=== PATIENT | male | born 2000 | race Caucasian/White ===

== ENCOUNTER 2020-04-02 07:00 | Outpatient (NON) | payer OTHER, SELFPAY ==
[2020-04-02 11:07] LABS: Influenza Control Positive
[2020-04-03 00:26] LABS: SARS-CoV-2 RNA PCR Negative
== END 2020-04-02 07:01 ==
LOC: ANHCOVIDDT 07:12
PROVIDERS: Visit Provider Family Medicine
DX: J02.9 Acute pharyngitis, unspecified (principal); Z20.828 Contact with and (suspected) exposure to other viral communicable diseases
CPT/HCPCS: 87635; 87804; C9803; U0003

== ENCOUNTER → 2021-01-26 02:54 | Outpatient (CLI) | payer OTHER, SELFPAY ==
[2021-01-26 19:14] LABS: SARS-CoV-2 RNA PCR Negative
== END ==
PROVIDERS: PCP Family Medicine; Visit Provider Family Medicine
DX: Z20.822 Contact with and (suspected) exposure to COVID-19 (principal); J02.9 Acute pharyngitis, unspecified
CPT/HCPCS: C9803; U0003; U0005

== ENCOUNTER → 2021-02-16 01:50 | Outpatient (CLI) | payer OTHER, SELFPAY ==
[2021-02-16 18:23] LABS: SARS-CoV-2 RNA PCR Negative
== END ==
PROVIDERS: PCP Family Medicine; Visit Provider Family Medicine
DX: Z20.822 Contact with and (suspected) exposure to COVID-19 (principal); J02.9 Acute pharyngitis, unspecified
CPT/HCPCS: C9803; U0003; U0005

== ENCOUNTER 2022-06-12 19:36 | Emergency (ER) | payer OTHER, SELFPAY ==
[2022-06-12 19:46] VITALS: BP 146/80; PULSE 86; RESP 16; TEMP 36.8; O2SAT 100
--- NOTE | 2022-06-12 19:48 | ED.URI ---
HPI - URI/Sore Throat General Chief Complaint: Upper Respiratory Infection Stated Complaint: sore throat, bodyaches, headaches Time Seen by Provider: 06/12/22 19:42 Source: patient Mode of arrival: ambulatory Limitations: no limitations History of Present Illness HPI Narrative: Patient presents today complaining of sore throat, body aches, headache, fever up to 101. Symptoms began this afternoon. Currently rates his pain 4/10 and has tried no [id number] treatment prior to arrival. Denies any sick contacts. Related Data Allergies Allergy/AdvReac Type Severity Reaction Status Date / Time No Known Allergies Allergy Verified 06/12/22 19:43 Review of Systems Review of Systems: CONSTITUTIONAL: Denies chills, or sweats.+ body aches, fever EYES: Denies visual changes, redness, or discharge. ENT: Denies rhinorrhea, congestion, or otalgia.+ sore throat CARDIOVASCULAR: Denies chest pain, palpitations, or edema. RESPIRATORY: Denies cough or dyspnea. GASTROINTESTINAL: Denies abdominal pain, nausea, vomiting, or diarrhea. GENITOURINARY: Denies dysuria or hematuria. SKIN: Denies rash, itching, or wounds. MUSCULOSKELETAL: Denies back pain, joint pain, or myalgia. NEUROLOGIC: Denies numbness, tingling, or weakness.+ headache PSYCH: Denies depression or anxiety. [facility] Past Medical History Medical History Anxiety BMI 20.0-20.9, adult Confusion and disorientation COVID-19 (~04/2021) 2nd episode April, COVID-19 virus detected (11/01/19) Elevated TSH History of migraine headaches Hypothyroidism, unspecified TSH 6.1, free T4 1.31, T3 total 113, TPO antibody less than 9 on 10/21/2019 Low back pain (02/04/22) Pharyngitis COVID test negative on 01/26/2021 Tonsillitis and adenoiditis, chronic Family History Family History Father Family history of hypercholesterolemia Patient's father is in good health Mother Family history of hypercholesterolemia Patient's mother is in good health Grandparent Family history of hypercholesterolemia Family history of malignant neoplasm, Onset Age: 65 Family history of chronic obstructive pulmonary disease, Onset Age: 75 Family history of congestive heart failure, Onset Age: 75 Social History Social History Smoking status: Never smoker Alcohol intake: current Alcohol use details: socially Substance use: never Substance use type: does not use Lack of Food: Never True Current Housing: I Have Housing Concerned About Future Housing: No Difficulty Paying Gas/Electric Bills: No Difficulty Paying for Meds: No Currently Unemployed: No Education: Associate Degree Difficulty w/ Childcare or Family Care: No Living arrangements: with family Gender identity (if verbalized by the patient): Male Comments At time of signature, I have reviewed and agree with nursing past medical, surgical, social and family history unless otherwise noted. Please see nursing chart for further information. There is no relevant family history pertinent to the presenting complaint Exam Narrative: GENERAL: Well-appearing, well-nourished, and in no acute distress. HEAD: Normocephalic, atraumatic. EYES: EOMI. No redness or drainage. Conjunctivae normal. ENT: Mucous membranes pink and moist. Nares clear. No rhinorrhea. TMs normal bilaterally. Throat erythematous without edema. Scant amount of white exudate on the right tonsil.. Uvula midline. NECK: Normal AROM. Supple. No lymphadenopathy. CHEST: No respiratory distress. Clear to auscultation. HEART: Regular rate and rhythm. No murmur appreciated. EXTREMITIES: Normal range of motion. No edema. SKIN: Warm, dry, no rash. Capillary refill normal. Normal skin turgor. NEURO: No focal deficits. Alert and oriented x3. Gait steady. PSYCH: No
== END 2022-06-12 20:00 | disposition home or self-care (01) ==
PROVIDERS: Emergency Provider Nurse Practitioner; PCP Family Medicine
DX: J02.0 Streptococcal pharyngitis (principal); E03.9 Hypothyroidism, unspecified; Z86.16 Personal history of COVID-19
CPT/HCPCS: 87880; 99213; G0463